=== PATIENT | male | born 1995 | race Caucasian/White ===

== ENCOUNTER 2022-05-01 11:31 | Emergency (ER) | payer SELFPAY ==
[~2022-05-01] VITALS: Ht 170.2 cm; Wt 73.0 kg
[2022-05-01] MEDS ORDERED: LIDOCAINE HCL/PF 1% 10 MG/ML 5ML VIAL INFIL ONE (12:00)
[2022-05-01] MEDS ORDERED: ACETAMINOPHEN 325MG TABLET PO ONE (12:00)
[2022-05-01] MEDS ORDERED: IBUP-2028 MT (12:55)
[2022-05-01] MEDS ORDERED: SULF1TAB48 MT (12:55)
[2022-05-01] MEDS ORDERED: CEPH500C2 MT (12:55)
[2022-05-01 13:25] VITALS: BP 126/56
== END 2022-05-01 13:30 | disposition home or self-care (01) ==
LOC: ER 11:31
DX: M79.641 Pain in right hand (principal); M25.531 Pain in right wrist; L03.011 Cellulitis of right finger; Z79.899 Other long term (current) drug therapy
CPT/HCPCS: 10060; 73110; 73130; 99284; J3490; Z7610